=== PATIENT | male | born 1985 | race Hispanic/Latino ===

== ENCOUNTER 2016-12-01 10:59 | Inpatient (IN) | payer OTHER ==
[2016-12-01] MEDS ORDERED: Sodium Chloride 0.9% 1,000 ML IV STA (11:13)
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
[2016-12-01] MEDS ORDERED: Piperacillin/Tazobact 3.375 gm 100 ML IVPB STA (11:20)
[2016-12-01 11:35] LABS: BASO # 0.04 K/mm3 (0.0-2.0); BASO % 0.3 % (0.0-3.0); EOS # 0.8 (0.0-0.7); EOS % 5.6 % (1.5-5.0); GRAN # 10.64 (1.4-6.5); GRAN % 73.1 % (50.0-68.0); HEMOGLOBIN 14.7 gm/dL (14.0-18.0); LYMPH # 2.1 (1.2-3.4); LYMPH % 14.2 % (22.0-35.0); MEAN CELL VOLUME 83.3 fL (80.0-105.0); MEAN CORPUSCULAR HEMOGLOBIN 28.2 pg (25.0-35.0); MEAN CORPUSCULAR HGB CONC 33.8 g/dl (31.0-37.0); MEAN PLATELET VOLUME 10.6 fl (7.0-11.0); MONO % 6.8 % (1.0-6.0); PLATELET COUNT 213 10^3/uL (120.0-450.0); RBC 5.22 10^6/uL (3.5-6.1); RED CELL DISTRIBUTION WIDTH 12.7 % (11.5-14.5); WHITE BLOOD COUNT 14.6 10^3/ul (4.5-11.0)
[2016-12-01 11:41] LABS: URINE BILIRUBIN NEGATIVE (NEGATIVE); URINE BLOOD NEGATIVE (NEGATIVE); URINE GLUCOSE (UA) NEGATIVE (NEGATIVE); URINE LEUKOCYTE ESTERASE NEGATIVE Leu/uL (NEGATIVE); URINE NITRATE NEGATIVE (NEGATIVE); URINE PROTEIN NEGATIVE mg/dL (<30 mg/dL); URINE UROBILINOGEN 0.2 E.U./dL (<1 E.U./dL)
[2016-12-01 11:42] LABS: ALB/GLOB RATIO 1.4 (1.1-1.8); ALBUMIN 4.6 g/dL (3.0-4.8); ALT/SGPT 54 U/L (7-56); AST/SGOT 30 U/L (15-59); BLOOD UREA NITROGEN 10 mg/dL (7-21); CALCIUM 9.7 mg/dL (8.4-10.5); GFR AFRICAN-AMERICAN > 60; GFR NON-AFRICAN AMERICAN > 60; LIPASE 36 U/L (23-300)
[2016-12-01 11:44] LABS: URINE APPEARANCE CLEAR (CLEAR); URINE COLOR YELLOW (YELLOW)
[2016-12-01 11:47] LABS: PARTIAL THROMBOPLASTIN TIME 30.9 Seconds (23.7-30.8); PROTHROMBIN TIME 10.8 Seconds (9.9-11.8)
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
[2016-12-01] MEDS ORDERED: Iohexol 240 (50 ml) ONE (12:22)
[2016-12-01] MEDS ORDERED: Morphine 2 mg/ml ISec IVP PRN ×2 (12:22→16:08)
--- NOTE | 2016-12-01 12:26 | RAD ---
HISTORY: preop COMPARISON: No prior. FINDINGS: LUNGS: No active pulmonary disease. PLEURA: No significant pleural effusion identified, no pneumothorax apparent. CARDIOVASCULAR: Normal. OSSEOUS STRUCTURES: No significant abnormalities. VISUALIZED UPPER ABDOMEN: Normal. OTHER FINDINGS: None. IMPRESSION: No active disease.
[2016-12-01] MEDS: Lactated Ringer's 1,000 ML IV SCH ×2 (12:32→20:27)
--- NOTE | 2016-12-01 14:33 | CT ---
PROCEDURE: CT Abdomen and Pelvis with contrast HISTORY: Abdominal pain COMPARISON: None. TECHNIQUE: CT scan of the abdomen and pelvis was performed without intravenous administration of contrast. Oral contrast was administered. Coronal and sagittal reformatted images were obtained. Radiation dose: Total exam DLP = 390.26 mGy-cm. This CT exam was performed using one or more of the following dose reduction techniques: Automated exposure control, adjustment of the mA and/or kV according to patient size, and/or use of iterative reconstruction technique. FINDINGS: LOWER THORAX: The lung bases are clear. LIVER: The liver is normal in size. No gross lesion or ductal dilatation. GALLBLADDER AND BILE DUCTS: The gallbladder is contracted. PANCREAS: The pancreas is normal in size. No gross lesion or ductal dilatation. SPLEEN: The spleen is normal in size. ADRENALS: Both adrenal glands are normal in size without discrete nodule. KIDNEYS AND URETERS: Both kidneys are normal in size without hydronephrosis or nephrolithiasis. VASCULATURE: No aortic aneurysm. BOWEL: The small bowel loops are normal in caliber. There is mild left colonic diverticulosis without CT evidence for acute diverticulitis. APPENDIX: The appendix is markedly distended and measures 1.8 cm. It is fluid filled, has shaggy irregular margins with significant surrounding inflammatory changes. PERITONEUM: No free fluid. No free air. LYMPH NODES: There are multiple enlarged lymph nodes in the right lower quadrant. BLADDER: Grossly normal in appearance. REPRODUCTIVE: The prostate gland is normal in size. BONES: No acute fracture. Within normal limits for the patient's age. OTHER FINDINGS: None. IMPRESSION: Findings are consistent with acute appendicitis. No evidence of perforation or abscess. Reactive enlarged right lower quadrant mesenteric lymph nodes.
[2016-12-01 15:20] VITALS: BMI 22.2
[2016-12-01] MEDS ORDERED: Pneumococcal 23-Valent Vaccine IM ONE (15:20)
[2016-12-01] MEDS ORDERED: Lactated Ringer's 1,000 ML IV SCH (16:08)
[2016-12-01] MEDS ORDERED: Bupivacaine 0.5% Inj(30mL) ONE ×2 (16:11→16:59)
[2016-12-01] MEDS ORDERED: Propofol 10 mg/ml Inj (20 ML) ONE (16:19)
[2016-12-01] MEDS ORDERED: Rocuronium 10 mg/ml (5 ml) ONE (16:20)
[2016-12-01] MEDS ORDERED: Midazolam 2 MG/2 ML VIAL ONE (16:20)
[2016-12-01] MEDS ORDERED: Neostigmine Methylsulfate 3mg/3ml Syringe IV ONE (17:59)
[2016-12-01] MEDS ORDERED: Piperacillin/Tazobact 3.375 gm 100 ML IVPB SCH (18:00)
[2016-12-01] MEDS ORDERED: Glycopyrrolate 0.2 mg/ml (2ml vial) ONE (18:01)
--- NOTE | 2016-12-01 18:47 | PCM.SURG1 ---
Surgeon's Initial Post Op Note - Surgeon's Notes Surgeon: Dr. Olvera Reservation Agent: Dr. Richards, Dr. Stevenson Type of Anesthesia: General Endo, Local Pre-Operative Diagnosis: acute appendicitis Operative Findings: inflammed appendix Post-Operative Diagnosis: same Operation Performed: laparoscopic appendectomy Specimen/Specimens Removed: appendix Estimated Blood Loss: EBL {In ML}: 15 Blood Products Given: N/A Drains Used: [place] Post-Op Condition: Good Date of Surgery/Procedure: 12/01/16 Time of Surgery/Procedure: 18:47
[2016-12-01] MEDS ORDERED: HYDROmorphone 0.5 mg/0.5 ml ISec ONE (19:08)
[2016-12-01] MEDS ORDERED: HYDROmorphone 0.5 mg/0.5 ml ISec IVP PRN (19:15)
[2016-12-01] MEDS: Morphine 4 mg/ml ISec IVP PRN (20:12)
[2016-12-02] MEDS: Morphine 4 mg/ml ISec IVP PRN ×3 (04:30→20:08)
[2016-12-02] MEDS: Lactated Ringer's 1,000 ML IV SCH ×3 (04:32→22:31)
[2016-12-02] MEDS: Ampicillin/Sulbactam 3 GM in Sodium Chloride 0.9% 100 ML IVPB SCH ×4 (05:31→23:32)
[2016-12-02 06:52] LABS: HEMOGLOBIN 12.9 gm/dL (14.0-18.0); MEAN CELL VOLUME 84.2 fL (80.0-105.0); MEAN CORPUSCULAR HEMOGLOBIN 27.9 pg (25.0-35.0); MEAN CORPUSCULAR HGB CONC 33.1 g/dl (31.0-37.0); MEAN PLATELET VOLUME 10.9 fl (7.0-11.0); PLATELET COUNT 202 10^3/uL (120.0-450.0); RBC 4.63 10^6/uL (3.5-6.1); RED CELL DISTRIBUTION WIDTH 13.1 % (11.5-14.5); WHITE BLOOD COUNT 15.9 10^3/ul (4.5-11.0)
[2016-12-02 07:21] LABS: ALB/GLOB RATIO 1.2 (1.1-1.8); ALBUMIN 3.7 g/dL (3.0-4.8); ALT/SGPT 47 U/L (7-56); AST/SGOT 26 U/L (15-59); BLOOD UREA NITROGEN 8 mg/dL (7-21); CALCIUM 8.8 mg/dL (8.4-10.5); GFR AFRICAN-AMERICAN > 60; GFR NON-AFRICAN AMERICAN > 60
[2016-12-02] MEDS: Oxycodone/Acetaminophen 5/325 mg Tab PO PRN ×2 (08:16→23:31)
--- NOTE | 2016-12-02 08:38 | CP.PCM.PN ---
Subjective - Date & Time of Evaluation Date of Evaluation: 12/02/16 Time of Evaluation: 07:40 - Subjective Subjective: Patient seen and examined. No acute events overnight. States that he is experiencing mild abdominal discomfort with intermittent radiating pain to the right testicle. Denies flatulence, bowel movement, and appetite. Denies fever, chills, chest pain, SOB. Objective - Vital Signs/Intake and Output Vital Signs (last 24 hours): Temp Pulse Resp BP Pulse Ox 97.8 F 72 22 122/77 98 12/01/16 22:00 12/01/16 22:00 12/01/16 22:00 12/01/16 22:00 12/01/16 22:00 Intake and Output: 12/02/16 12/02/16 06:59 18:59 Intake Total 1000 Output Total 205 Balance 795 - Medications Medications: Current Medications Lactated Ringer's (Lactated Ringer's) 1,000 mls @ 125 mls/hr IV .Q8H HUGO Last Admin: 12/02/16 04:32 Dose: 125 mls/hr Ampicillin Sodium/Sulbactam (Sodium 3 gm/ Sodium Chloride) 100 mls @ 200 mls/ hr IVPB Q6 HUGO PRN Reason: Protocol Last Admin: 12/02/16 05:31 Dose: 200 mls/hr Morphine Sulfate (Morphine) 4 mg IVP Q4H PRN PRN Reason: Pain, severe (8-10) Last Admin: 12/02/16 04:30 Dose: 4 mg Ondansetron HCl (Zofran Inj) 4 mg IVP Q4 PRN PRN Reason: Nausea/Vomiting Oxycodone/Acetaminophen (Percocet 5/325 Mg Tab) 1 tab PO Q4H PRN PRN Reason: Pain, moderate (4-7) Stop: 12/04/16 18:48 Last Admin: 12/02/16 08:16 Dose: 1 tab - Labs Labs: 12/02/16 06:00 12/02/16 06:00 PT 10.8 Seconds (9.9-11.8) 12/01/16 11:10 INR 1.00 (0.93-1.08) 12/01/16 11:10 APTT 30.9 Seconds (23.7-30.8) H 12/01/16 11:10 - Additional Findings Additional findings: - Constitutional Appears: Non-toxic, No Acute Distress - Head Exam Head Exam: ATRAUMATIC, NORMOCEPHALIC - Eye Exam Eye Exam: EOMI, Normal appearance - ENT Exam ENT Exam: Mucous Membranes Moist - Neck Exam Neck exam: Positive for: Normal Inspection - Respiratory Exam Respiratory Exam: Accessory Muscle Use, Clear to Auscultation Bilateral - Cardiovascular Exam Cardiovascular Exam: +S1, +S2 - GI/Abdominal Exam GI & Abdominal Exam: Soft, samantha drain set to negative pressure, serosanginous fluid present in bulb absent: Rebound, Rigid - Extremities Exam Extremities exam: Positive for: normal inspection, pedal pulses present - Psychiatric Exam Psychiatric exam: Normal Affect, Normal Mood Assessment and Plan - Assessment and Plan (Free Text) Assessment: 31 yo male POD # 1 s/p laproscopic appendectomy - Advance diet - IVF - Pain control - Zofran - OOB - Encouraged IS use Will d/w attending.
[2016-12-02 08:43] LABS: BASOPHIL 0 % (0.0-1.0); EOSINOPHIL 0 % (0.0-3.0); LYMPHOCYTE 7 % (22.0-35.0); MONOCYTE 9 % (1.0-6.0); NEUTROPHIL 83 % (50.0-70.0); PLATELET ESTIMATE NORMAL (NORMAL)
--- NOTE | 2016-12-02 10:22 | CARD ---
APPROVED REPORT EKG Measurement Heart [id number] <Conclusion> Normal sinus rhythm Normal ECG
--- NOTE | 2016-12-02 21:09 | OP ---
PROCEDURE DATE: 12/02/2016 PREOPERATIVE DIAGNOSIS: Acute appendicitis. 4 POSTOPERATIVE DIAGNOSIS: Acute appendicitis. OPERATION PERFORMED: Laparoscopic appendectomy. SURGEON: Dr. Adeel Olvera. SMOOTH PLATER: Dr. Wheat and Dr. Stevenson. DESCRIPTION OF PROCEDURE: In the operating room, the patient was identified by name of the procedure, laterality, by marking the consent and instrument . In the operating room, the abdomen was prepped and draped in the usual manner. An umbilical incision was made through the prep skin after the successful timeout. The Veress needle was inserted followed by the Visiport. Laparoscopy was performed. The appendix was seen to be stuck in the right lower quadrant. The midline suprapubic and the left lower quadrant catheter was placed 5 mm and this allowed us to the cecum towards the calender operator. There was a small abscess that was seen in the gutter next to the large appendix. This was cleaned as regular contamination. The appendiceal tip was brought up and the base of the appendix was dissected. There was an area of perforation anteriorly close to the base. The base was taken with an Endo BRIGITTE and the mesentery was taken with the white clip. Done well on examination. The appendiceal base was less than perfectly close. A prestige clamp was placed on the appendiceal stump or base. It was brought up and the base was then taken with a blue load Endo BRIGITTE to give a good closure. Simply no contamination from this. The wounds were irrigated and dried. The incision was closed with the drain because of the abscess, which was placed on the left side. The wounds were copiously irrigated and dried. There was nothing else on toward. No evidence of Crohn's, but there was a lot of inflammation in the right lower quadrant. The incision was closed with a 2-0 stitch at the umbilicus and the wounds were injected with Marcaine. The skin was closed with subcuticular PDS and Dermabond. The patient was taken to the recovery room in good condition. All instruments counts were clear and correct. Adeel Olvera MD
[2016-12-03] MEDS: Ampicillin/Sulbactam 3 GM in Sodium Chloride 0.9% 100 ML IVPB SCH (06:21)
--- NOTE | 2016-12-03 08:34 | CP.PCM.PN ---
Subjective - Date & Time of Evaluation Date of Evaluation: 12/03/16 Time of Evaluation: 07:45 - Subjective Subjective: Patient seen and examined. States that he is experiencing a fever. C/o of mild abdominal discomfort near the samantha drain site. Tolerating diet. Denies flatuence and bowel movement. States that he is able to urinate without overt difficulty. Denies chills, chest pain, N/V. Objective - Vital Signs/Intake and Output Vital Signs (last 24 hours): Temp Pulse Resp BP Pulse Ox 100.7 F H 115 H 20 134/79 95 12/03/16 06:00 12/03/16 06:00 12/03/16 06:00 12/03/16 06:00 12/03/16 06:00 Intake and Output: 12/03/16 12/03/16 06:59 18:59 Intake Total 1240 Output Total 150 Balance 1090 - Medications Medications: Current Medications Acetaminophen (Tylenol 325mg Tab) 650 mg PO Q4H PRN PRN Reason: Fever >100.4 F Last Admin: 12/03/16 06:21 Dose: 650 mg Lactated Ringer's (Lactated Ringer's) 1,000 mls @ 125 mls/hr IV .Q8H HUGO Last Admin: 12/02/16 22:31 Dose: 125 mls/hr Ampicillin Sodium/Sulbactam (Sodium 3 gm/ Sodium Chloride) 100 mls @ 200 mls/ hr IVPB Q6 HUGO PRN Reason: Protocol Last Admin: 12/03/16 06:21 Dose: 200 mls/hr Morphine Sulfate (Morphine) 4 mg IVP Q4H PRN PRN Reason: Pain, severe (8-10) Last Admin: 12/02/16 20:08 Dose: 4 mg Ondansetron HCl (Zofran Inj) 4 mg IVP Q4 PRN PRN Reason: Nausea/Vomiting Last Admin: 12/02/16 15:51 Dose: 4 mg Oxycodone/Acetaminophen (Percocet 5/325 Mg Tab) 1 tab PO Q4H PRN PRN Reason: Pain, moderate (4-7) Stop: 12/04/16 18:48 Last Admin: 12/02/16 23:31 Dose: 1 tab - Labs Labs: 12/02/16 06:00 12/02/16 06:00 PT 10.8 Seconds (9.9-11.8) 12/01/16 11:10 INR 1.00 (0.93-1.08) 12/01/16 11:10 APTT 30.9 Seconds (23.7-30.8) H 12/01/16 11:10 - Additional Findings Additional findings: - Constitutional Appears: Non-toxic, No Acute Distress - Head Exam Head Exam: ATRAUMATIC, NORMOCEPHALIC - Eye Exam Eye Exam: EOMI, Normal appearance - ENT Exam ENT Exam: Mucous Membranes Moist - Neck Exam Neck exam: Positive for: Normal Inspection - Respiratory Exam Respiratory Exam: Accessory Muscle Use, Clear to Auscultation Bilateral - Cardiovascular Exam Cardiovascular Exam: +S1, +S2 - GI/Abdominal Exam GI & Abdominal Exam: Soft, samantha drain set to negative pressure, serosanginous fluid present in bulb absent: Rebound, Rigid - Extremities Exam Extremities exam: Positive for: normal inspection, pedal pulses present - Psychiatric Exam Psychiatric exam: Normal Affect, Normal Mood Assessment and Plan - Assessment and Plan (Free Text) Assessment: 31 yo male POD # 2 s/p laproscopic appendectomy - Full diet - IVF - Pain control - Zofran - OOB - Encouraged IS use - Continue ampillicin/sulbactam - Add Flagyl - ID consult - Tylenol prn fever - Review stat labs CBC, CMP, Mag, Phos Will d/w attending.
[2016-12-03 09:11] LABS: BASO # 0.02 K/mm3 (0.0-2.0); BASO % 0.2 % (0.0-3.0); EOS % 0.3 % (1.5-5.0); GRAN # 9.22 (1.4-6.5); GRAN % 79.1 % (50.0-68.0); HEMOGLOBIN 12.3 gm/dL (14.0-18.0); LYMPH # 1.2 (1.2-3.4); LYMPH % 10.3 % (22.0-35.0); MEAN CELL VOLUME 84.2 fL (80.0-105.0); MEAN CORPUSCULAR HEMOGLOBIN 27.4 pg (25.0-35.0); MEAN CORPUSCULAR HGB CONC 32.5 g/dl (31.0-37.0); MEAN PLATELET VOLUME 10.3 fl (7.0-11.0); MONO # 1.2 (0.1-0.6); MONO % 10.1 % (1.0-6.0); PLATELET COUNT 169 10^3/uL (120.0-450.0); RBC 4.49 10^6/uL (3.5-6.1); WHITE BLOOD COUNT 11.7 10^3/ul (4.5-11.0)
[2016-12-03 09:25] LABS: ALB/GLOB RATIO 1.2 (1.1-1.8); ALBUMIN 3.5 g/dL (3.0-4.8); ALT/SGPT 36 U/L (7-56); AST/SGOT 25 U/L (15-59); BLOOD UREA NITROGEN 6 mg/dL (7-21); CALCIUM 8.8 mg/dL (8.4-10.5); GFR AFRICAN-AMERICAN > 60; GFR NON-AFRICAN AMERICAN > 60; MAGNESIUM 1.6 mg/dL (1.7-2.2)
[2016-12-03] MEDS: Piperacillin/Tazobact 3.375 gm 100 ML IVPB SCH ×2 (09:36→12:32)
[2016-12-03] MEDS: metroNIDAZOLE IV 500 mg/100 ml 500 MG/100 ML BAG IVPB SCH ×3 (09:37→21:47)
[2016-12-03] MEDS: Lactated Ringer's 1,000 ML IV SCH (09:38)
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
[2016-12-03] MEDS ORDERED: Potassium Chloride 20 mEq ER Tab PO ONE (12:45)
[2016-12-03] MEDS ORDERED: Magnesium Sulfate 1 gm in D5W 1 GM/100 ML BAG IVPB ONE (12:46)
--- NOTE | 2016-12-03 13:05 | RAD ---
HISTORY: rule out pneumonia COMPARISON: 12/01/2016 FINDINGS: LUNGS: No active pulmonary disease. PLEURA: No significant pleural effusion identified, no pneumothorax apparent. CARDIOVASCULAR: Normal. OSSEOUS STRUCTURES: No significant abnormalities. VISUALIZED UPPER ABDOMEN: Normal. OTHER FINDINGS: None. IMPRESSION: No active disease.
[2016-12-03] MEDS ORDERED: Piperacillin/Tazobact 3.375 gm 100 ML IVPB SCH (18:31)
[2016-12-03] MEDS: Morphine 4 mg/ml ISec IVP PRN (18:33)
[2016-12-03] MEDS ORDERED: Oxycodone/Acetaminophen 5/325 mg Tab PO PRN ×2 (20:39)
[2016-12-04] MEDS ORDERED: Piperacillin/Tazobact 3.375 gm 100 ML IVPB SCH
[2016-12-04] MEDS: metroNIDAZOLE IV 500 mg/100 ml 500 MG/100 ML BAG IVPB SCH (05:43)
[2016-12-04 07:54] LABS: BASO # 0.04 K/mm3 (0.0-2.0); BASO % 0.4 % (0.0-3.0); EOS # 0.7 (0.0-0.7); EOS % 6.4 % (1.5-5.0); GRAN # 7.23 (1.4-6.5); GRAN % 64.8 % (50.0-68.0); HEMOGLOBIN 12.7 gm/dL (14.0-18.0); LYMPH # 1.6 (1.2-3.4); LYMPH % 14.1 % (22.0-35.0); MEAN CELL VOLUME 84.2 fL (80.0-105.0); MEAN CORPUSCULAR HEMOGLOBIN 27.5 pg (25.0-35.0); MEAN CORPUSCULAR HGB CONC 32.7 g/dl (31.0-37.0); MEAN PLATELET VOLUME 10.2 fl (7.0-11.0); MONO # 1.6 (0.1-0.6); MONO % 14.3 % (1.0-6.0); PLATELET COUNT 176 10^3/uL (120.0-450.0); RBC 4.61 10^6/uL (3.5-6.1); RED CELL DISTRIBUTION WIDTH 13.1 % (11.5-14.5); WHITE BLOOD COUNT 11.2 10^3/ul (4.5-11.0)
--- NOTE | 2016-12-04 07:57 | CP.PCM.DIS ---
Provider - Provider Date of Admission: 12/01/16 12:27 Attending physician: Adeel Olvera MD Primary care physician: Steven Marie MD Time Spent in preparation of Discharge (in minutes): 30 Hospital Course - Lab Results Lab Results: Most Recent Lab Values WBC 11.7 10^3/ul (4.5-11.0) H D 12/03/16 09:00 RBC 4.49 10^6/uL (3.5-6.1) 12/03/16 09:00 Hgb 12.3 gm/dL (14.0-18.0) L 12/03/16 09:00 Hct 37.8 % (42.0-52.0) L 12/03/16 09:00 MCV 84.2 fL (80.0-105.0) 12/03/16 09:00 MCH 27.4 pg (25.0-35.0) 12/03/16 09:00 MCHC 32.5 g/dl (31.0-37.0) 12/03/16 09:00 RDW 13.0 % (11.5-14.5) 12/03/16 09:00 Plt Count 169 10^3/uL (120.0-450.0) 12/03/16 09:00 MPV 10.3 fl (7.0-11.0) 12/03/16 09:00 Gran % 79.1 % (50.0-68.0) H 12/03/16 09:00 Lymph % (Auto) 10.3 % (22.0-35.0) L 12/03/16 09:00 [place] % (Auto) 10.1 % (1.0-6.0) H 12/03/16 09:00 Eos % (Auto) 0.3 % (1.5-5.0) L 12/03/16 09:00 Baso % (Auto) 0.2 % (0.0-3.0) 12/03/16 09:00 Gran # 9.22 (1.4-6.5) H 12/03/16 09:00 Lymph # 1.2 (1.2-3.4) 12/03/16 09:00 [place] # 1.2 (0.1-0.6) H 12/03/16 09:00 Eos # 0.0 (0.0-0.7) 12/03/16 09:00 Baso # 0.02 K/mm3 (0.0-2.0) 12/03/16 09:00 Neutrophils % (Manual) 83 % (50.0-70.0) H 12/02/16 06:00 Lymphocytes % (Manual) 7 % (22.0-35.0) L 12/02/16 06:00 Monocytes % (Manual) 9 % (1.0-6.0) H 12/02/16 06:00 Eosinophils % (Manual) 0 % (0.0-3.0) 12/02/16 06:00 Basophils % (Manual) 0 % (0.0-1.0) 12/02/16 06:00 Platelet Evaluation Normal (NORMAL) 12/02/16 06:00 PT 10.8 Seconds (9.9-11.8) 12/01/16 11:10 INR 1.00 (0.93-1.08) 12/01/16 11:10 APTT 30.9 Seconds (23.7-30.8) H 12/01/16 11:10 Sodium 136 mmol/L (132-148) 12/03/16 09:00 Potassium 3.5 mmol/L (3.6-5.0) L 12/03/16 09:00 Chloride 99 mmol/L (98-107) 12/03/16 09:00 Carbon Dioxide 31 mmol/L (21-33) 12/03/16 09:00 Anion Gap 10 (10-20) 12/03/16 09:00 BUN 6 mg/dL (7-21) L 12/03/16 09:00 Creatinine 0.7 mg/dL (0.5-1.4) 12/03/16 09:00 Est GFR ( Amer) > 60 12/03/16 09:00 Est GFR (Non-Af Amer) > 60 12/03/16 09:00 Random Glucose 128 mg/dL (70-110) H 12/03/16 09:00 Calcium 8.8 mg/dL (8.4-10.5) 12/03/16 09:00 Phosphorus 2.5 mg/dL (2.5-4.5) 12/03/16 09:00 Magnesium 1.6 mg/dL (1.7-2.2) L 12/03/16 09:00 Total Bilirubin 0.5 mg/dL (0.2-1.3) 12/03/16 09:00 AST 25 U/L (15-59) 12/03/16 09:00 ALT 36 U/L (7-56) 12/03/16 09:00 Alkaline Phosphatase 94 U/L (38-133) 12/03/16 09:00 Total Protein 6.5 g/dL (5.8-8.3) 12/03/16 09:00 Albumin 3.5 g/dL (3.0-4.8) 12/03/16 09:00 Globulin 3.0 gm/dL 12/03/16 09:00 Albumin/Globulin Ratio 1.2 (1.1-1.8) 12/03/16 09:00 Lipase 36 U/L (23-300) 12/01/16 11:10 Urine Color Yellow (YELLOW) 12/01/16 11:10 Urine Appearance Clear (CLEAR) 12/01/16 11:10 Urine pH 6.0 (4.7-8.0) 12/01/16 11:10 Ur Specific [place] >= 1.030 (1.005-1.035) 12/01/16 11:10 Urine Protein Negative mg/dL (<30 mg/dL) 12/01/16 11:10 Urine Glucose (UA) Negative mg/dL (NEGATIVE) 12/01/16 11:10 Urine Ketones Negative mg/dL (NEGATIVE) 12/01/16 11:10 Urine Blood Negative (NEGATIVE) 12/01/16 11:10 Urine Nitrate Negative (NEGATIVE) 12/01/16 11:10 Urine Bilirubin Negative (NEGATIVE) 12/01/16 11:10 Urine Urobilinogen 0.2 E.U./dL (<1 E.U./dL) 12/01/16 11:10 Ur Leukocyte Esterase Negative Jordy/uL (NEGATIVE) 12/01/16 11:10 Blood Type O POSITIVE 12/01/16 11:10 Blood Type Confirm O POSITIVE 12/01/16 11:50 Antibody Screen Negative 12/01/16 11:10 BBK History Checked No verified bt 12/01/16 11:10 - Hospital Course Hospital Course: 31 y/o M presented to the ED on 12/01/16 w/ RLQ x1wk. Pt received outpatient CT scan at PMD request which showed appendicitis. Repeat CT performed in the ED confirmed Dx of appendicitis. Pt underwent laparoscopic appendectomy; the appendix was found to be perforated so a samantha drain was placed. pt tolerated the procedure well. Post-op pt became febrile. ID was consulted and IV Abx were adjusted. Currently, pt has been afebrile [id number]. Pt is tolerating regular diet and pain is controlled w/ medication. Pt is cleared for discharge to home w / PO Abx/ Discharge Exam - Head Exam Head Exam: NORMAL INSPECTION - Eye Exam Eye Exam: EOMI - ENT Exam ENT Exam: Mucous Membranes Moist - Respiratory Exam Respiratory Exam: NORMAL BREATHING PATTERN. absent: Accessory Muscle Use, Respiratory Distress - Cardiovascular Exam Cardiovascular Exam: absent: Bradycardia, Tachycardia - GI/Abdominal Exam GI & Abdominal Exam: Soft. absent: Distended, Guarding, Tenderness Additional comments: dressings c/d/i. samantha drain in place, serosanguinous fluid present. - Extremities Exam Extremities exam: normal inspection - Neurological Exam Neurological exam: Alert, Oriented x3 - Psychiatric Exam Psychiatric exam: Normal Affect, Normal Mood - Skin Skin Exam: Dry, Normal Color, Warm Discharge Plan - Discharge Medications Prescriptions: Amoxicillin/Clavulanate [Augmentin 875 MG-125 MG] 1 tab PO BID #10 tab oxyCODONE/Acetaminophen [Percocet 5/325 mg Tab] 1 ea PO Q4 PRN #30 tab PRN Reason: Pain, Moderate (4-7) - Follow Up Plan Condition: GOOD Disposition: HOME/ ROUTINE Patient education suggested?: Yes Instructions: Appendicitis (DC), Luis Fernando-Leroy Drain Care (DC), Laparoscopic Appendectomy (DC), Care For Your Absorbable Stitches (DC) Additional Instructions: Follow up with PMD within 1 week Follow up with Dr. Olvera within 7-10days Take all medications as prescribed May supplement pain medication w/ Tylenol and Advil as needed Change outer dressings as needed Leave steri strips in place, they will fall of on their own May shower upon discharge, however, do not soak incisions No pools, hot tubs, or baths. No heavy lifting for 1-2weeks after discharge. return to the ED if fever >100.4, pain, redness, swelling, drainage from incisions. Referrals: Steven Marie MD [Primary Care Provider] - Adeel Olvera MD [Staff Provider] -
[2016-12-04 08:09] LABS: ALB/GLOB RATIO 1.1 (1.1-1.8); ALBUMIN 3.2 g/dL (3.0-4.8); ALT/SGPT 36 U/L (7-56); AST/SGOT 28 U/L (15-59); BLOOD UREA NITROGEN 7 mg/dL (7-21); CALCIUM 8.4 mg/dL (8.4-10.5); GFR AFRICAN-AMERICAN > 60; GFR NON-AFRICAN AMERICAN > 60; MAGNESIUM 2.1 mg/dL (1.7-2.2)
[2016-12-04] MEDS ORDERED: Bisacodyl 5mg EC Tab PO ONE (08:24)
[2016-12-04] MEDS: Piperacillin/Tazobact 3.375 gm 100 ML IVPB SCH ×2 (08:33→12:57)
[2016-12-04 09:02] VITALS: BP 115/69; PULSE 63; RESP 17; TEMP 98.1; O2SAT 98
--- NOTE | 2016-12-04 21:08 | CP.PCM.PN ---
Subjective - Date & Time of Evaluation Date of Evaluation: 12/04/16 Time of Evaluation: 09:50 - Subjective Subjective: Comfortable, not in distress, afebrile, still with some abdominal discomfort but feeling better. Objective - Vital Signs/Intake and Output Vital Signs (last 24 hours): Temp Pulse Resp BP Pulse Ox 97.8 F 98 H 20 117/66 96 12/03/16 18:00 12/03/16 18:00 12/03/16 18:00 12/03/16 18:00 12/03/16 18:00 Intake and Output: 12/04/16 12/04/16 06:59 18:59 Intake Total 240 Output Total 330 Balance -90 - Medications Medications: Current Medications Acetaminophen (Tylenol 325mg Tab) 650 mg PO Q4H PRN PRN Reason: Fever >100.4 F Last Admin: 12/03/16 06:21 Dose: 650 mg Acetaminophen (Tylenol 325mg Tab) 650 mg PO Q4H PRN PRN Reason: Headache Last Admin: 12/03/16 13:10 Dose: 650 mg Piperacillin Sod/Tazobactam Sod (Zosyn 3.375 In Ns 100ml) 100 mls @ 200 mls/hr IVPB Q6 HUGO PRN Reason: Protocol Stop: 12/09/16 07:53 Last Admin: 12/04/16 08:33 Dose: 200 mls/hr Ketorolac Tromethamine (Toradol) 30 mg IVP Q6H PRN PRN Reason: Pain, moderate (4-7) Last Admin: 12/03/16 21:46 Dose: 30 mg Ondansetron HCl (Zofran Inj) 4 mg IVP Q4 PRN PRN Reason: Nausea/Vomiting Last Admin: 12/03/16 17:35 Dose: 4 mg Oxycodone/Acetaminophen (Percocet 5/325 Mg Tab) 1 tab PO Q6H PRN PRN Reason: Pain, severe (8-10) Stop: 12/04/16 18:48 Last Admin: 12/03/16 20:44 Dose: 1 tab - Labs Labs: 12/04/16 07:30 12/04/16 07:30 PT 10.8 Seconds (9.9-11.8) 12/01/16 11:10 INR 1.00 (0.93-1.08) 12/01/16 11:10 APTT 30.9 Seconds (23.7-30.8) H 12/01/16 11:10 - Constitutional Appears: Non-toxic, No Acute Distress - Head Exam Head Exam: NORMAL INSPECTION - Neck Exam Neck Exam: absent: Meningismus - Respiratory Exam Respiratory Exam: Decreased Breath Sounds. absent: Rales - Cardiovascular Exam Cardiovascular Exam: +S1, +S2 - GI/Abdominal Exam GI & Abdominal Exam: Soft. absent: Tenderness Assessment and Plan - Assessment and Plan (Free Text) Plan: Assessment Sepsis due to acute appendicitis S/P laparoscopic appendectomy POD #3 clinically improving mitral valve prolapse S/P right inguinal hernia with repair with mesh Plan continue Zosyn day 3; blood cx are negative, CXR does not show pneumonia; when ready for discharge, the patient can be switched to PO augmentin
== END 2016-12-04 20:00 | disposition home or self-care (01) | DRG 553 ==
LOC: ED 10:59 → ERH 12:27 → 3RSO 14:15
PROVIDERS: ADMIT Surgery; ATTEND Surgery
PROC: 0DTJ4ZZ Resection of Appendix, Percutaneous Endoscopic Approach (ICD-10-PCS; principal; 2016-12-02)
DX: K35.80 Unspecified acute appendicitis (principal); A41.9 Sepsis, unspecified organism; E87.6 Hypokalemia; E83.42 Hypomagnesemia; I34.1 Nonrheumatic mitral (valve) prolapse; Z82.49 Family history of ischemic heart disease and other diseases of the circulatory system; R40.2412 Glasgow coma scale score 13-15, at arrival to emergency department

== ENCOUNTER 2017-10-08 09:39 | Emergency (ER) | payer OTHER ==
[2017-10-08 09:40] VITALS: BMI 22.2
[2017-10-08 10:07] VITALS: TEMP 98.5
--- NOTE | 2017-10-08 10:45 | ED PDOC ---
Arrival/HPI - General Chief Complaint: Upper Extremity Problem/Injury Time Seen by Provider: 10/08/17 10:34 Historian: Patient - History of Present Illness Narrative History of Present Illness (Text): 10/08/17 10:45 This 32 yo male who denies pmh presents to this Emergency department complaining of pain on his right hand and right shoulder x 3 days. Patient stated while using a machine a work, he hurt his hand and shoulder. Denies weakness, paresthesias, neck pain, fall, heavy lifting, skin rash, erythema, or heavy lifting. Denies other somatic complains. Time/Duration: < week Context: Work Past Medical History - Provider Review Nursing Documentation Reviewed: Yes - Infectious Disease Hx of Infectious Diseases: None - Tetanus Immunization Tetanus Immunization: Unknown - Past Medical History Past Medical History: No Previous - Cardiac Hx Cardiac Disorders: No - Pulmonary Hx Respiratory Disorders: No - Neurological Hx Neurological Disorder: No - HEENT Hx HEENT Disorder: No - Renal Hx Renal Disorder: No - Endocrine/Metabolic Hx Endocrine Disorders: No - Hematological/Oncological Hx Blood Disorders: No - Integumentary Hx Dermatological Disorder: Yes (TATTOOS TO ARMS) - Musculoskeletal/Rheumatological Hx Musculoskeletal Disorders: No Hx Falls: No - Gastrointestinal Hx Gastrointestinal Disorders: Yes Other/Comment: RIGHT INGUINAL HERNIA REPAIR WITH MESH. 12-01-16 APPENDICITIS - Genitourinary/Gynecological Hx Genitourinary Disorders: Yes Other/Comment: VARICOCELE,HYDOCELE - Psychiatric Hx Psychophysiologic Disorder: Yes Hx Substance Use: No - Past Surgical History Past Surgical History: No Previous - Surgical History Hx Inguinal Hernia Repair: Yes - Anesthesia Hx Anesthesia Reactions: No Hx Malignant Hyperthermia: No - Suicidal Assessment Feels Threatened In Home Enviroment: No Family/Social History - Physician Review Nursing Documentation Reviewed: Yes Family/Social History: Other (noncontributory) Smoking Status: Never Smoked Hx Alcohol Use: No Hx Substance Use: No Hx Substance Use Treatment: No Allergies/Home Meds Allergies/Adverse Reactions: Allergies No Known Allergies Allergy (Verified 10/08/17 10:07) Review of Systems - Review of Systems Constitutional: Normal. absent: Fatigue, Weight Change, Fevers, Night Sweats Eyes: Normal ENT: Normal Respiratory: Normal. absent: SOB, Cough Cardiovascular: Normal. absent: Chest Pain, Palpitations Gastrointestinal: Normal. absent: Abdominal Pain, Nausea Genitourinary Male: Normal Musculoskeletal: Normal, Other (see hpi) Skin: Normal Neurological: Normal Endocrine: Normal Hemo/Lymphatic: Normal Psychiatric: Normal Physical Exam Vital Signs Temp Pulse Resp BP Pulse Ox 10/08/17 10:05 98.5 F 88 18 137/86 99 Temperature: Afebrile Blood Pressure: Normal Pulse: Regular Respiratory Rate: Normal Appearance: Positive for: Well-Appearing, Non-Toxic, Comfortable Pain Distress: None Mental Status: Positive for: Alert and Oriented X 3 - Systems Exam Head: Present: Atraumatic, Normocephalic, Other (no raccoon sign. no sanderson sign) Pupils: Present: PERRL, Other (no hyphema) Extroacular Muscles: Present: EOMI. No: Entrapment Conjunctiva: Present: Normal Ears: Present: Normal, NORMAL TM, Normal Canal, Other (no hemotympanum). No: Erythema, TM Bulging, Fluid, TM Perf Mouth: Present: Moist Mucous Membranes Pharnyx: Present: Normal. No: ERYTHEMA, EXUDATE, TONSILS ENLARGED Nose (External): Present: Atraumatic Nose (Internal): Present: Normal Inspection Neck: Present: Normal Range of Motion, Trachea Midline. No: Meningeal Signs, MIDLINE TENDERNESS, Paraspinal Tenderness Back: Present: Normal Inspection. No: CVA Tenderness Upper Extremity: Present: Normal Inspection, Normal ROM, NORMAL PULSES, Neurovascularly Intact, Capillary Refill < 2s, Other ((+) avis mild ecchymosis over right 5th MPJ). No: Cyanosis, Edema Lower Extremity: Present: Normal Inspection. No: Edema Neurological: Present: GCS=15, CN II-XII Intact, Speech Normal Skin: Present: Warm, Dry, Normal Color. No: Rashes Psychiatric: Present: Alert, Oriented x 3, Normal Insight, Normal Concentration Medical Decision Making ED Course and Treatment: 10/08/17 10:45 Patient refused pain medication 10/08/17 13:00 Re-evaluation. Patient feels better. Discussed results and plan with patient who expresses understanding. All questions answered and there is agreement with the plan to discharge home with instructions. Patient stable for discharge. Return if symptoms persist or worsen. Re-evaluation Time: 13:00 Reassessment Condition: Re-examined, Improved - RAD Interpretation Narrative RAD Interpretations (Text): 10/08/17 13:00 Hand x-rays: No Fx Shoulder x-rays: No Fx or dislo. Radiology Orders: 10/08/17 10:44 SHOULDER RIGHT [RAD] Stat 10/08/17 10:45 HAND RIGHT 3 VIEWS [RAD] Stat Disposition/Present on Arrival - Present on Arrival Any Indicators Present on Arrival: No History of DVT/PE: No History of Uncontrolled Diabetes: No Urinary Catheter: No History of Decub. Ulcer: No History Surgical Site Infection Following: None - Disposition Have Diagnosis and Disposition been Completed?: Yes Diagnosis: Hand pain, Shoulder pain Disposition: HOME/ ROUTINE Disposition Time: 13:00 Patient Plan: Discharge Patient Problems: Current Active Problems Problem Status Onset Hand pain Acute Shoulder pain Acute Condition: IMPROVED Discharge Instructions (ExitCare): Hand Pain (DC) Additional Instructions: Call private doctor for follow up visit in 1-2 days. Take medication as instructed. return to emergency if pain worsen. Prescriptions: Famotidine [Pepcid] 40 mg PO DAILY #10 tablet Ibuprofen [Motrin] 600 mg PO Q8 PRN #20 tab PRN Reason: Pain, Severe (8-10) Referrals: Steven Marie MD [Family Provider] - Follow up with primary Forms: [facility] ([place]), WORK NOTE
--- NOTE | 2017-10-08 12:35 | RAD ---
PROCEDURE: Right Hand Radiographs. HISTORY: pain COMPARISON: None. FINDINGS: BONES: Normal. No fracture. JOINTS: Normal. No osteoarthritic changes. SOFT TISSUES: Normal. OTHER FINDINGS: None. IMPRESSION: Normal right hand radiographs.
--- NOTE | 2017-10-08 12:35 | RAD ---
PROCEDURE: Radiographs of the Right Shoulder HISTORY: pain COMPARISON: No prior. FINDINGS: BONES: Normal. No fracture. JOINTS: Normal. Glenohumeral and acromioclavicular joints preserved. No osteoarthritis. SOFT TISSUES: Normal. OTHER FINDINGS: None. IMPRESSION: Normal radiographs of the right shoulder.
[2017-10-08 13:41] VITALS: BP 132/80; PULSE 75; RESP 17; O2SAT 100
== END 2017-10-08 13:40 | disposition home or self-care (01) ==
LOC: ED 09:39
DX: M25.511 Pain in right shoulder (principal); M79.641 Pain in right hand

== ENCOUNTER → 2018-08-07 | Outpatient (CLI) | payer OTHER | END | disposition home or self-care (01) | LOC: RAD 11:26 ==